=== PATIENT | female | born 1980 | race Caucasian/White ===

== ENCOUNTER 2016-08-22 09:33 | Outpatient (CLI) | payer OTHER | END 2016-08-22 09:34 | disposition home or self-care (01) | DX: Z36 Encounter for antenatal screening of mother (principal) ==

== ENCOUNTER 2016-09-04 11:20 | Outpatient (CLI) | payer OTHER | END 2016-09-04 11:21 | disposition home or self-care (01) | DX: O26.893 Other specified pregnancy related conditions, third trimester (principal); R01.1 Cardiac murmur, unspecified ==

== ENCOUNTER 2016-10-18 11:58 | Outpatient (CLI) | payer OTHER | END 2016-10-18 11:59 | disposition home or self-care (01) | DX: Z36 Encounter for antenatal screening of mother (principal) ==

== ENCOUNTER 2016-11-05 11:38 | Outpatient (CLI) | payer OTHER ==
[2016-11-05 15:43] LABS: BASOPHILS % (AUTO) 0.2 %; EOSINOPHILS # (AUTO) 0.1 10^3/uL (0.0-0.7); EOSINOPHILS % (AUTO) 0.5 %; HCT - HEMATOCRIT 40.5 % (37.0-47.0); HGB - HEMOGLOBIN 13.3 g/dL (12.0-16.0); LYMPHOCYTES # (AUTO) 1.4 10^3/uL (1.5-3.5); LYMPHOCYTES % (AUTO) 9.8 %; MEAN CORPUSCULAR HEMOGLOBIN 28.7 pg (27.0-31.0); MEAN CORPUSCULAR HGB CONC 32.8 g/dL (32.0-36.0); MEAN CORPUSCULAR VOLUME 87.5 fL (81.0-99.0); MEAN PLATELET VOLUME 8.8 fL (7.9-10.8); MONOCYTES # (AUTO) 0.8 10^3/uL (0.0-1.0); MONOCYTES % (AUTO) 5.4 %; NEUTROPHILS % (AUTO) 84.1 %; RED BLOOD COUNT 4.62 10^6/uL (4.20-5.40); RED CELL DISTRIBUTION WIDTH 13.7 % (12.0-15.0); UNCORRECTED WHITE BLOOD COUNT 14.3 x10^3/uL; WHITE BLOOD COUNT 14.3 x10^3/uL (4.8-10.8)
--- NOTE | 2016-11-05 15:52 | HISTORY & PHYSICAL EXAMINATION ---
DATE OF ADMISSION: 11/05/2016 DIAGNOSES: 1. 38 weeks 1 day gestation. 2. Episode of bradycardia heard in office. 3. Decreased movement. 4. Irregular heartbeat 2:1 to 3:1 ratio. HISTORY The patient is a 36-year-old 2, para 1-0-0-1 woman who has had regular care at the [facility] and presented for her usual 38-week check. heart tones were recorded initially at 109 and rechecked at 155 to 160. The patient reported decreased movement, which prompted NST in evaluation in labor and delivery. heart tracing in labor and delivery documented heart tones at a alcon of 109 and up to 155 with marked increase variability and accels. The audible heart tones demonstrated a skipped beat pattern. The patient has no history of diabetes or gestational diabetes. She has not taken any medications other than vitamins recently. She denies drug, tobacco or alcohol use. She has not taken any cfya-xhe-rbssynt medications, and/or caffeine drinks. She reports no leakage of fluid or contractions other than normal [place]. She does not report any anxiety or excitement. Her prior in 2008 resulted in a 41 week difficult of a female weighing 3288 g with nuchal cord and pneumothorax. There is no history of congenital heart disease. The patient has no history of cardiovascular disease or chronic disease. ALLERGIES: NO KNOWN DRUG ALLERGIES. MEDICATIONS: 1. vitamins. 2. Iron. PHYSICAL EXAMINATION: GENERAL: The patient lying comfortably in bed in no distress, alert, oriented and cooperative. VITAL SIGNS: Temperature 98.6, pulse 108, blood pressure 134/92, respiratory rate 20, pulse oximetry 99. HEENT: Nonicteric sclera EOMI. No thyromegaly. CARDIAC: Regular. No murmur, no gallop. LUNGS: Clear. ABDOMEN: No hepatosplenomegaly. No abdominal tenderness. Uterus appropriate size roughly 38 cm. No focal tenderness. No contractions. EXTERNAL heart monitor baseline in general 130s with some wandering and hypervariability, accels present, no notable decelerations. Rare contractions noted. EXTERNAL GENITALIA: No lesions. Dr. Givens. VAGINA: No blood or discharge. CERVIX: Closed long and thick, slightly posterior, Dr. Givens. EXTREMITIES: Nonedematous. ASSESSMENT: The patient has a documented heart irregularity that seems to match a pattern that one would expect for a 1:3 to 2:1 block. The irregularity could account for some of the changes seen on the heart tracing. At the current time, there are no concerns of heart failure. I observed the formal ultrasound and there does not seem to be hydrops. heart seems to be 4 chamber and no structural defects were found though this is only a level 1 study. heart tone irregularity occurs in 1-2% of the patients and often is associated with structural abnormality or abnormal antibody. There are no risk factors for increased incidence of structural abnormality. Currently, antibody causes are being investigated with anti-RO/SSA antibody, anti-LA/SSB antibody; Lupus antibody being drawn. Urine toxicology is also drawn, as well as maternal thyroid panel. Formal echocardiogram will be needed. Further workup will be coordinated with maternal medicine, Dr. Butler, at [facility] maternal medicine. PLAN: Obtain echocardiogram on Friday at [facility] if possible, or if not at [facility] on . Await antibody screen results. There are no concerns about immediate deterioration of condition/ wellbeing. We can safely allow the patient to travel to these appointments by private auto. She has been given instruction to do kick counting on a daily basis and if kick count is diminished she is instructed to call our service immediately. JOB #: [id number] EXT JOB #:[id number] FRANKLYN
--- NOTE | 2016-11-05 16:06 | Ultrasound Report ---
OB LIMITED ULTRASOUND: 11/05/2016 CLINICAL INDICATION: Irregular heart rhythm. TECHNIQUE: Real-time scanning was performed with mortician supplies sales representative static images obtained. LAST MENSTRUAL PERIOD 02/12/2016 Clinical Age 38 weeks 1 day US Age 39 weeks 4 days EFW Hadlock 3857 g EFW% Hadlock 91 % Heart Rate 115 bpm EDC 11/18/2016 US EDC 11/08/2016 BPD Hadlock 38 weeks 3 days; means mm 94.3 HC Hadlock 41 weeks 0 days; means mm 351.9 AC Hadlock 40 weeks 1 days; means mm 362.3 FL Hadlock 38 weeks 3 days; means mm 75.2 Presentation cephalic Placental Location posterior Cervical Length 5.7 cm Amniotic Fluid 18.7 cm FINDINGS: There is a single viable intrauterine gestation, in cephalic presentation. heart rate is 115 BPM. The heart rhythm is noted to be irregular. Visualization of the cardiac structures is limited by positioning, with the spine up throughout the course of the examination. The four-chamber heart appears unremarkable, but outflow tracks could not be visualized. By size, the fetus measures 39.6 weeks (38.1 weeks by LMP). Estimated weight by Hadlock method is 3857 grams, at the 91st percentile for LMP dating. Amniotic fluid volume is normal, with an KURT of 18.7. The placenta is posterior , without evidence of previa. The cervix measures 5.7 cm, and is closed. No adnexal mass or free fluid is appreciated. Please also refer to biophysical profile of the same day. IMPRESSION: SINGLE VIABLE INTRAUTERINE GESTATION, WITH SIZE IN KEEPING WITH LMP DATING. ESTIMATED WEIGHT OF 3857 GRAMS. IRREGULAR HEART RHYTHM. STRUCTURAL EVALUATION OF THE CARDIAC STRUCTURES LIMITED BY POSITIONING AND LATE DATES. NORMAL KURT. MTDD
--- NOTE | 2016-11-05 16:08 | Ultrasound Report ---
BIOPHYSICAL PROFILE: 11/05/2016 CLINICAL INDICATION: bradycardia. TECHNIQUE: Real-time scanning was performed with treasury representative static images obtained. FINDINGS: The fetus receives 2 points for motion, 2 points for tone , and 2 points for amniotic fluid volume. This yields a final score of 6 out of 8. KURT is 18.7. heart rate is 115 BPM. IMPRESSION: A 6 OUT OF 8 BIOPHYSICAL PROFILE. PLEASE ALSO REFER TO LIMITED OB ULTRASOUND OF THE SAME DAY. MTDD
[2016-11-05 16:45] VITALS: BP 135/78
[2016-11-05 17:14] LABS: THYROID STIMULATING HORMONE 2.37 uIU/mL (0.34-5.60)
[2016-11-08 12:08] LABS: TEST RESULT REPORT (())
[2016-11-16 00:23] LABS: B2 GLYCOPROTEIN I IGA AB <9 SAU (< OR = 20); B2 GLYCOPROTEIN I IGG AB <9 SGU (< OR = 20); B2 GLYCOPROTEIN I IGM AB <9 SMU (< OR = 20)
== END 2016-11-05 16:40 | disposition home or self-care (01) ==
LOC: WFO 11:38 → OB 11:39 → WFO 16:40
PROVIDERS: ATTEND Obstetrics & Gynecology
DX: O36.8130 Decreased fetal movements, third trimester, not applicable or unspecified (principal); O76 Abnormality in fetal heart rate and rhythm complicating labor and delivery; Z3A.38 38 weeks gestation of pregnancy
CPT/HCPCS: 36415; 59025; 76816; 76819; 80306; 81599; 84439; 84443; 84482; 85025; 85613; 85730; 86146; 86147; 86235

== ENCOUNTER 2016-11-08 09:54 | Outpatient (CLI) | payer OTHER ==
[2016-11-08 10:07] VITALS: BP 136/88
--- NOTE | 2016-11-10 07:06 | HISTORY & PHYSICAL EXAMINATION ---
DATE OF ADMISSION: 11/08/2016 DIAGNOSES 1. Irregular heart tones/arrhythmia. 2. 38 weeks 4 days gestation. 3. Reactive non-stress test. 4. Advanced maternal age. The patient is a 36-year-old 2, para 1-0-0-1, woman who has been noted to have persistent irregular heart tones. She has been evaluated with echocardiography, which found benign PACs without any tachycardia or structural defect. Current recommendations is for a EKG and Holter monitor. She reports no signs or symptoms of labor or preeclampsia. She has not experienced lightning, vaginal discharge, bloody show or symptoms suggestive of labor. Her last delivery was at or about 42 weeks. The second stage of the labor lasted 40 minutes and provider's note indicates a tight nuchal cord, but does not mention shoulder dystocia. The patient remembers her and nurse holding her legs up, but does not remember hyperflexion specifically. Post-delivery, the suffered a pneumothorax, which she uneventfully recovered. PHYSICAL EXAMINATION VITAL SIGNS: 37.1, pulse 87, respirations 18, blood pressure 136/88. ABDOMEN: Gravid by Russell's fetus is about 7 pounds, vertex presentation. No uterine tenderness. No palpable contractions. EXTERNAL GENITALIA: No apparent lesions. VAGINA: No blood or discharge. CERVIX: Dimple, 20% effaced, -2 station, soft consistency, posterior. NST is category 1 and reactive. ASSESSMENT: The patient has a known arrhythmia without compromise of the fetus. The arrhythmia in itself does not require immediate delivery. There are concerns from her prior history that a difficult delivery versus a tight nuchal cord caused depression, aggressive resuscitation and resultant pneumothorax. Records do not indicate shoulder dystocia and there are no specific recollections by the patient. Current cervical examination is unfavorable. PLAN: We had an open discussion of the relative merits and disadvantages of induction at 39 weeks. The patient is aware that a 39 week delivery will reduce size and diminish chances of trauma. She was also made aware that induction carries a slightly higher rate of delivery compared to spontaneous labor. At the current time, the patient is disinclined to undergo induction at 39 weeks and would prefer to wait for natural cervical ripening, either through coitus, physical activity, or nipple stimulation. If she changes her mind, she will call back for a Friday morning trial of Cervidil. Cervidil was explained to the patient in detail. She will return on Friday for an NST, and on office reevaluation. JOB #: [id number] EXT JOB #:[id number] FRANKLYN
== END 2016-11-08 11:27 | disposition home or self-care (01) ==
LOC: WFO 09:54 → OB 09:55 → WFO 11:27
PROVIDERS: ATTEND Obstetrics & Gynecology
DX: O76 Abnormality in fetal heart rate and rhythm complicating labor and delivery (principal); O09.523 Supervision of elderly multigravida, third trimester; Z3A.38 38 weeks gestation of pregnancy
CPT/HCPCS: 59025

== ENCOUNTER 2016-11-12 08:21 | Outpatient (CLI) | payer OTHER ==
[2016-11-12 09:33] VITALS: BP 133/77
== END 2016-11-12 09:55 | disposition home or self-care (01) ==
LOC: WFO 08:21 → OB 09:21 → WFO 09:55
PROVIDERS: ATTEND Obstetrics & Gynecology
DX: O76 Abnormality in fetal heart rate and rhythm complicating labor and delivery (principal); Z3A.39 39 weeks gestation of pregnancy
CPT/HCPCS: 59025

== ENCOUNTER 2016-11-14 11:30 | Outpatient (CLI) | payer OTHER ==
[2016-11-14 11:42] VITALS: BP 130/73
--- NOTE | 2016-11-17 07:06 | HISTORY & PHYSICAL EXAMINATION ---
DATE OF ADMISSION: 11/14/2016 IDENTIFICATION: This is a 36-year-old G2, P1-0-0-1 with a 40-1/7-week intrauterine , EDC 11/18/2016 with 11 week ultrasound consistent with dates. HISTORY OF PRESENT ILLNESS: This is a patient of [facility] who presented on 11/19/2016 for an elective cervical ripening and induction of labor. The patient's history is significant for a difficult vaginal delivery with her daughter. Although the delivery records do not reflect this, I suspect she had a shoulder dystocia, which caused a pneumothorax in her daughter. The baby needed to be transferred out at that time. She was 41 weeks at the time of delivery. This is a male infant. She is currently doing well, denies any nausea, vomiting, fevers, chills, diarrhea or constipation. She states the baby is moving well and denies any vaginal bleeding or loss of fluid. The patient's most recent examination on revealed that she was closed, 20% effaced, and -2 station, soft and posterior. Her has been remarkable for premature atrial contractions noted at about 38 weeks' gestation. She had a echocardiogram on 11/06/[address] Lacy at [facility]. Dr. Bateman discussed the case with Dr. Sánchez who was comfortable taking care of a fetus with premature atrial contractions. PAST MEDICAL HISTORY: None. PAST SURGICAL HISTORY: None. ALLERGIES: NO KNOWN DRUG ALLERGIES. MEDICATIONS: vitamins. SOCIAL HISTORY: She denies any tobacco, alcohol use, illicit drug use. She is to [place] and this is anticipated male fetus. PAST OBSTETRICAL HISTORY: Her daughter was delivered at [facility] in [place], [place], at 40 weeks 5 days. She did receive an epidural at that time, there was a nuchal cord x1 that was tight. Apgars 7 and 9 at 1 and 5 minutes, respectively. Her daughter's name is Gita who will be 8 years of age in January. PAST GYNECOLOGICAL HISTORY: She has had a history of abnormal Pap smears which wave spontaneously reverted to normal. She denies any sexually transmitted diseases or abnormal Pap smears. FAMILY HISTORY: Noncontributory REVIEW OF SYSTEMS: Negative unless otherwise stated. OBJECTIVE: VITAL SIGNS: Most recent blood pressure is 122/59, weight is 173 pounds. Height is 63 inches. GENERAL: The patient is a well-developed, well-nourished female in no apparent distress. She is alert and oriented x3. HEENT: Within normal limits. CARDIOVASCULAR: Rate is regular, no murmurs or rubs. PULMONARY: Lungs clear to auscultation bilaterally. ABDOMEN: Gravid, nontender. Estimated weight is 9 pounds. laboratories reveal that she is B positive, antibody negative, rubella immune, HIV negative, gonorrhea and chlamydia both negative. Pap smear was normal on 10/27/2014. anatomical survey is consistent with dates within normal limits. Cervix measured 5.7 cm with a posterior placenta. On 09/04/2016 maternal echocardiogram revealed ejection fraction of 60-65% without valvular disease or abnormal wall movement and cell DNA was within normal limits showing GBS is negative with a 1-hour GTT of 110. ASSESSMENT: 1. A 36-year-old G2, P1-0-0-1 with a 40-week, 1-day intrauterine . 2. Cervix remote from delivery. 3. Suspect shoulder dystocia with first . PLAN: 1. We will start Cytotec 50 mcg sublingually x1. 2. Shoulder dystocia precautions at the time of delivery. 3. CBC with a type and hold. 4. We will alert Pediatrics and remind them about the premature atrial contractions that were noted on the echocardiogram. JOB #: [id number] EXT JOB #:[id number] FRANKLYN
== END 2016-11-14 12:20 | disposition home or self-care (01) ==
LOC: WFO 11:30 → OB 11:32 → WFO 12:20
PROVIDERS: ATTEND Obstetrics & Gynecology
DX: O76 Abnormality in fetal heart rate and rhythm complicating labor and delivery (principal); Z3A.39 39 weeks gestation of pregnancy
CPT/HCPCS: 59025

== ENCOUNTER 2016-11-19 07:30 | Inpatient (IN) | payer OTHER ==
[2016-11-19] MEDS ORDERED: SODIUM CHLORIDE FLUSH 0.9% 10 ML SYRINGE IVP ONE (07:42)
--- NOTE | 2016-11-19 08:09 | PROVIDER PROGRESS NOTE ---
Labor Progress Note - Instructions [place]/Slash: -Left hand click circles element as positive or present. -Right hand click slashes element as negative or not present. - Uterine Monitoring Uterine Monitoring Mode: positive: External toco Contraction Frequency (min/apart): Irregular Contraction Intensity: positive: Mild to moderate Uterine Resting Tone: positive: Soft - Monitoring Monitor Mode: positive: External ultrasound Heart Rate Baseline: 110-120's Heart Rate Variability: positive: Moderate (6-25 bmp) Accelerations: positive: Present, 15x15 Decelerations: positive: None Strip Review: positive: Category I - Vaginal Exam Dilation (in cm): 0 Effacement (%): 40 Station: positive: -3 Cervical Position: positive: Posterior - Labor Progress Note Labor Progress Note/Additional Text: 36 yo with a 40wd1 IUP Elective induction of labor PACs Cervix remote from delivery Cytotec 50 mcg SL x 1 Pitocin when cervix ripened
[2016-11-19] MEDS: SODIUM CHLORIDE FLUSH 0.9% 10 ML SYRINGE IVP PRN ×2 (08:12→16:20)
[2016-11-19] MEDS ORDERED: fentaNYL 100 MCG/2 ML VIAL IVP PRN (08:13)
[2016-11-19] MEDS ORDERED: ONDANSETRON 4 MG/2 ML VIAL IVP PRN (08:13)
[2016-11-19] MEDS ORDERED: SODIUM CHLORIDE FLUSH 0.9% 10 ML SYRINGE IVP PRN (08:13)
[2016-11-19] MEDS ORDERED: ACETAMINOPHEN 325 MG TABLET PO PRN (08:13)
[2016-11-19 08:23] LABS: BASOPHILS # (AUTO) 0.1 10^3/uL (0.0-0.1); BASOPHILS % (AUTO) 0.5 %; EOSINOPHILS % (AUTO) 0.4 %; HCT - HEMATOCRIT 36.5 % (37.0-47.0); HGB - HEMOGLOBIN 12.6 g/dL (12.0-16.0); LYMPHOCYTES # (AUTO) 1.3 10^3/uL (1.5-3.5); LYMPHOCYTES % (AUTO) 13.5 %; MEAN CORPUSCULAR HEMOGLOBIN 30.1 pg (27.0-31.0); MEAN CORPUSCULAR HGB CONC 34.7 g/dL (32.0-36.0); MEAN CORPUSCULAR VOLUME 86.9 fL (81.0-99.0); MEAN PLATELET VOLUME 8.2 fL (7.9-10.8); MONOCYTES # (AUTO) 0.7 10^3/uL (0.0-1.0); MONOCYTES % (AUTO) 7.5 %; NEUTROPHILS # (AUTO) 7.7 10^3/uL (1.5-6.6); NEUTROPHILS % (AUTO) 78.1 %; RED CELL DISTRIBUTION WIDTH 13.5 % (12.0-15.0); UNCORRECTED WHITE BLOOD COUNT 9.8 x10^3/uL; WHITE BLOOD COUNT 9.8 x10^3/uL (4.8-10.8)
[2016-11-19] MEDS ORDERED: miSOPROStol 100 MCG TABLET SL ONE (08:30)
[2016-11-19] MEDS ORDERED: LACTATED RINGERS 1,000 ML IV SCH ×2 (09:00→10:02)
[2016-11-19] MEDS ORDERED: TERBUTALINE 1 MG/ML VIAL SUBQ ONE ×3 (10:00→15:54)
[2016-11-19] MEDS ORDERED: LACTATED RINGERS 500 ML IV ONE (10:01)
--- NOTE | 2016-11-19 10:30 | PROVIDER PROGRESS NOTE ---
Labor Progress Note - Instructions [place]/Slash: -Left hand click circles element as positive or present. -Right hand click slashes element as negative or not present. - Uterine Monitoring Uterine Monitoring Mode: positive: External toco Contraction Frequency (min/apart): Irreg (Q2-4) Contraction Intensity: positive: Moderate - Monitoring Monitor Mode: positive: External ultrasound Heart Rate Variability: positive: Moderate (6-25 bmp) Accelerations: positive: Present, 15x15 Decelerations: positive: Late Strip Review: positive: Category II - Labor Progress Note Labor Progress Note/Additional Text: Was called by RN regarding late decels. Patient received cytotec 50 mcg SL x 1. Decels likely from tachysystole. IVF bolus and terbutaline given. Now, decels resolved. Contractions less. Will use cervidil or pitocin for induction.
--- NOTE | 2016-11-19 10:50 | PROVIDER PROGRESS NOTE ---
Labor Progress Note - Instructions [place]/Slash: -Left hand click circles element as positive or present. -Right hand click slashes element as negative or not present. - Uterine Monitoring Uterine Monitoring Mode: positive: External toco Contraction Frequency (min/apart): >Q3 min Contraction Intensity: positive: Mild to moderate Uterine Resting Tone: positive: Soft - Monitoring Monitor Mode: positive: External ultrasound Heart Rate Variability: positive: Moderate (6-25 bmp) Accelerations: positive: Present, 15x15 Decelerations: positive: None Strip Review: positive: Category I - Labor Progress Note Labor Progress Note/Additional Text: Late decels resolved after IVF bolus of LR and terbutaline. Since patient had tachysystole with cytotec, will start pitocin. Pitocin has a very short half life so will be much easier to control vs cytotec. Also change patient status from observation to in-patient. Continue close observation of FHT. Baseline in 120's and reactive and category 1. No decels noted.
[2016-11-19] MEDS ORDERED: OXYTOCIN/LACTATED RINGERS 250 ML IV SCH (11:00)
--- NOTE | 2016-11-19 12:39 | PROVIDER PROGRESS NOTE ---
Labor Progress Note - Instructions [place]/Slash: -Left hand click circles element as positive or present. -Right hand click slashes element as negative or not present. - Uterine Monitoring Uterine Monitoring Mode: positive: External toco Contraction Frequency (min/apart): >Q3 min Contraction Intensity: positive: Moderate Uterine Resting Tone: positive: Soft - Monitoring Monitor Mode: positive: External ultrasound Heart Rate Baseline: 110-120's Heart Rate Variability: positive: Moderate (6-25 bmp) Accelerations: positive: Present, 15x15 Decelerations: positive: None Strip Review: positive: Category I - Vaginal Exam Dilation (in cm): (Deferred) - Labor Progress Note Labor Progress Note/Additional Text: 36 yo with a 40w1d IUP Elective induction Reassuring status Continue pitocin (currently on 2 miliunits/min) Labs, EKG, Meds, Allergy - Lab Results Fish Bones: 11/19/16 08:05 Other Lab Results: Lab Results x24hrs 11/19/16 Range/Units 08:05 WBC 9.8 (4.8-10.8) x10^3/uL RBC 4.20 (4.20-5.40) 10^6/uL Hgb 12.6 (12.0-16.0) g/dL Hct 36.5 L (37.0-47.0) % MCV 86.9 (81.0-99.0) fL MCH 30.1 (27.0-31.0) pg MCHC 34.7 (32.0-36.0) g/dL RDW 13.5 (12.0-15.0) % Plt Count 254 (130-450) 10^3/uL MPV 8.2 (7.9-10.8) fL Neut # 7.7 H (1.5-6.6) 10^3/uL Lymph # 1.3 L (1.5-3.5) 10^3/uL [place] # 0.7 (0.0-1.0) 10^3/uL Eos # 0.0 (0.0-0.7) 10^3/uL Baso # 0.1 (0.0-0.1) 10^3/uL Absolute Nucleated RBC 0.00 x10^3/uL Nucleated RBCs 0.0 /100WBC - Allergy Allergy: Allergies Allergy/AdvReac Type Severity Reaction Status Date / Time No Known Drug Allergies Allergy Verified 11/05/16 13:14
--- NOTE | 2016-11-19 15:57 | PROVIDER PROGRESS NOTE ---
Labor Progress Note - Instructions [place]/Slash: -Left hand click circles element as positive or present. -Right hand click slashes element as negative or not present. - Uterine Monitoring Uterine Monitoring Mode: positive: External toco Contraction Frequency (min/apart): Q2 min Contraction Intensity: positive: Moderate Uterine Resting Tone: positive: Soft - Monitoring Heart Rate Variability: positive: Moderate (6-25 bmp) Accelerations: positive: Present, 15x15 Decelerations: positive: Late Strip Review: positive: Category II (Called by RN for late decelerations. Patient on pitocin 3 milliunit/min. Baby not tolerating tachysystoole. PAC audible. Pitocin ordered to be stopped and terbutaline to be given. Will reevaluate.)
--- NOTE | 2016-11-19 16:38 | PROVIDER PROGRESS NOTE ---
Labor Progress Note - Instructions [place]/Slash: -Left hand click circles element as positive or present. -Right hand click slashes element as negative or not present. - Uterine Monitoring Uterine Monitoring Mode: positive: External toco Contraction Frequency (min/apart): Q2-3 min (pitocin up to 3 milliunits/min) Contraction Intensity: positive: Moderate Uterine Resting Tone: positive: Soft - Monitoring Monitor Mode: positive: External ultrasound Heart Rate Variability: positive: Moderate (6-25 bmp) Accelerations: positive: Present, 15x15 Decelerations: positive: None Strip Review: positive: Category I - Vaginal Exam Dilation (in cm): CL Effacement (%): 50 Station: positive: -2 Cervical Position: positive: Posterior - Labor Progress Note Labor Progress Note/Additional Text: 36 yo with a 40w0d IUP Fetus does not tolerate contractions Q 2 minutes or less. Decels resolved after pitocin stopped. No significant improvement on cervix after 1 dose of cytotec 50 mcg SL and pitocin 4.5 hours. D/W patient we can discharge her to home and return later, cervidil overnight and reevaluate in AM. Patient has decided to get the cervidil overnight. Will proceed.
[2016-11-19] MEDS ORDERED: DINOPROSTONE 10 MG SUPP VG SCH (17:00)
[2016-11-19] MEDS ORDERED: ZOLPIDEM 5 MG TABLET PO PRN (17:03)
[2016-11-20] MEDS: SODIUM CHLORIDE FLUSH 0.9% 10 ML SYRINGE IVP PRN (04:20)
[2016-11-20] MEDS ORDERED: OXYTOCIN/LACTATED RINGERS 250 ML IV ONE ×2 (12:59→18:42)
--- NOTE | 2016-11-20 13:02 | PROVIDER PROGRESS NOTE ---
Labor Progress Note - Instructions [place]/Slash: -Left hand click circles element as positive or present. -Right hand click slashes element as negative or not present. - Vaginal Exam Dilation (in cm): 4 Effacement (%): 50% Station: positive: -3 Cervical Position: positive: Posterior - Labor Progress Note Labor Progress Note/Additional Text: Removed Watts bulb Cx is soft. will start pitocin
[2016-11-20] MEDS ORDERED: OXYTOCIN/LACTATED RINGERS 250 ML IV SCH (14:00)
--- NOTE | 2016-11-20 15:01 | PROVIDER PROGRESS NOTE ---
Labor Progress Note - Instructions [place]/Slash: -Left hand click circles element as positive or present. -Right hand click slashes element as negative or not present. - Uterine Monitoring Uterine Monitoring Mode: positive: External toco Contraction Frequency (min/apart): 10 Contraction Intensity: positive: Mild Uterine Resting Tone: positive: Soft - Monitoring Monitor Mode: positive: External ultrasound Heart Rate Baseline: 120 Heart Rate Variability: positive: Moderate (6-25 bmp) Accelerations: positive: Present, 15x15 Decelerations: positive: Prolonged (>2x10 min) (P:t was stated on pitocin at 1 units was increased to 2 and baby developed deceleration to the 90, Pit sstoped and baby recovered. baby had decelerations with cytotec, and pit cervical ripening. She has yet to develope rerular strong contraction.) Strip Review: positive: Category II
[2016-11-20] MEDS ORDERED: CITRIC ACID/SODIUM CITRATE 15 ML UDC PO ONE (15:19)
[2016-11-20] MEDS ORDERED: LACTATED RINGERS 1,000 ML IV ONE ×2 (15:24→16:34)
[2016-11-20] MEDS ORDERED: MORPHINE PF 5 MG/10 ML AMP SUBQ ONE (15:45)
[2016-11-20] MEDS ORDERED: fentaNYL 100 MCG/2 ML VIAL IVP ONE (15:45)
[2016-11-20] MEDS ORDERED: OXYTOCIN 10 UNIT/ML VIAL IV ONE (15:45)
--- NOTE | 2016-11-20 16:43 | OPERATIVE REPORT ---
Operative Report - General Admit Date: 11/19/16 Procedure Date: 11/20/16 Planned Procedure: Primary LTCS Pre-Op Diagnosis: 1. 40.2 weeks 2. intolerance of labor 3. cardiac arythmia Post Op Diagnosis: Same - Procedure Note Primary Surgeon: Ryan Givens MD Secondary Surgeon: Schuyler Núñez Anesthesia Provider: Jimmy Grigsby Anesthesia Technique: Spinal Pathology: Placenta Estimated Blood Loss (in cc): 900
[2016-11-20] MEDS ORDERED: diphenhydrAMINE 25 MG CAPSULE PO PRN (16:46)
[2016-11-20] MEDS ORDERED: diphenhydrAMINE INJ 50 MG/ML VIAL IVP PRN (16:46)
[2016-11-20] MEDS ORDERED: LACTATED RINGERS 1,000 ML IV SCH (17:00)
[2016-11-20] MEDS: KETOROLAC 30 MG/ML VIAL IV SCH (18:16)
[2016-11-20] MEDS: ACETAMINOPHEN 500 MG TABLET PO SCH (18:47)
[2016-11-20] MEDS: SIMETHICONE CHEW 80 MG TABLET PO SCH (21:57)
[2016-11-21] MEDS: SODIUM CHLORIDE FLUSH 0.9% 10 ML SYRINGE IVP PRN ×4 (00:17→17:42)
[2016-11-21] MEDS: KETOROLAC 30 MG/ML VIAL IV SCH ×3 (00:17→11:41)
[2016-11-21] MEDS: ACETAMINOPHEN 500 MG TABLET PO SCH ×3 (03:41→20:07)
[2016-11-21 06:03] LABS: BASOPHILS # (AUTO) 0.1 10^3/uL (0.0-0.1); BASOPHILS % (AUTO) 0.5 %; EOSINOPHILS # (AUTO) 0.1 10^3/uL (0.0-0.7); EOSINOPHILS % (AUTO) 0.6 %; HCT - HEMATOCRIT 34.8 % (37.0-47.0); HGB - HEMOGLOBIN 11.4 g/dL (12.0-16.0); LYMPHOCYTES # (AUTO) 1.4 10^3/uL (1.5-3.5); LYMPHOCYTES % (AUTO) 11.2 %; MEAN CORPUSCULAR HEMOGLOBIN 29.3 pg (27.0-31.0); MEAN CORPUSCULAR HGB CONC 32.8 g/dL (32.0-36.0); MEAN CORPUSCULAR VOLUME 89.3 fL (81.0-99.0); MEAN PLATELET VOLUME 8.7 fL (7.9-10.8); MONOCYTES # (AUTO) 0.8 10^3/uL (0.0-1.0); MONOCYTES % (AUTO) 6.6 %; NEUTROPHILS # (AUTO) 10.4 10^3/uL (1.5-6.6); NEUTROPHILS % (AUTO) 81.1 %; UNCORRECTED WHITE BLOOD COUNT 12.8 x10^3/uL; WHITE BLOOD COUNT 12.8 x10^3/uL (4.8-10.8)
--- NOTE | 2016-11-21 06:31 | OPERATIVE REPORT ---
DATE OF SURGERY: 11/20/2016 00:00:00 PREOPERATIVE DIAGNOSES 1. 40.2 weeks. 2. intolerance of labor. 3. Infant with cardiac arrhythmia. POSTOPERATIVE DIAGNOSES 1. 40.2 weeks. 2. intolerance of labor. 3. Infant with cardiac arrhythmia. PROCEDURE: Primary low transverse section. SURGEON: Ryan Givens MD. CHEESE BLENDER: Dr. Niya MD. ANESTHESIA: Spinal. ESTIMATED BLOOD LOSS: 900 mL. FINDINGS: Live male , vertex presentation, clear amniotic fluid, Apgars 8 and 9. No evidence of any nuchal or prolapsed cords. Normal pelvis. PROCEDURE: Following adequate spinal anesthesia, the patient was placed in the supine position with a roll under the right hip. At this point, she was prepped and draped in the usual fashion. Following a time-out, the patient was identified. Allergies, as well as concerns identified and at procedure was commenced. A Pfannenstiel incision was carried down through subcutaneous tissue to the fascia. The fascia was incised transversely, then using both blunt and sharp dissection, it was freed from the rectus abdominis and pyramidalis. The rectus was split along the midline. Peritoneum was entered high. Care was taken to avoid injury to the bowel or bladder. A bladder flap was developed using Metzenbaum scissors and pickups. A low transverse uterine incision was accomplished using a #10 blade, bandage scissor, and finger spread technique. The head of the infant was lifted out of pelvis, delivered through the incision. The oropharynx were bulb suctioned. The remainder of the infant was delivered without difficulty. The cord was doubly clamped, divided, and the infant was handed to the nursery team that was standing by. Cord blood samples were obtained, but because of good Apgars of being 8 and 9, it was decided that no cord gases were indicated. The placenta was manually delivered, the uterus exteriorized, wrapped in a moist lap, and cleansed in the internal portion with a dry lap. The placenta was sent for pathology. The incision was closed using 0 Vicryl running locking suture with an imbricating layer of #0 Vicryl. Good hemostasis was observed. At this point, the incision was closed with a running locking suture of #0 Vicryl with an imbricating layer of #0 Vicryl. Estimated blood loss was ascertained at that time and the pelvis was irrigated. The uterus was delivered back in the abdominal cavity. The gutters were irrigated and suctioned. The incision was inspected. No bleeding was noted, so the peritoneum was closed using 2-0 Vicryl in a running suture. The rectus was reapproximated with 2-0 Vicryl and then the fascia was closed using 0 Vicryl starting at the apexes of the incision and crossing at the midline. Subcutaneous tissue was closed utilizing 2-0 Vicryl and the incision itself was closed using 4-0 Monocryl subcuticular stitch. Mastisol, as well as Steri- Strips were applied. The patient tolerated the procedure well and was taken to recovery in stable condition. Sponge and needle counts were correct. JOB #: [id number] EXT JOB #:[id number] MTDD
--- NOTE | 2016-11-21 07:58 | PROVIDER PROGRESS NOTE ---
Subjective - General Admit Date: 11/19/16 Procedure Date: 11/20/16 Post Op Days: 1 Procedure Performed: PLTC/S - Review of Systems Wound/Incisions: positive: Dressing dry and intact General: positive: No symptoms (Passing flatus. Pain is 1/10 when not moving.) Gastrointestinal: positive: Flatus Objective - Patient Data Vital Signs: Vital Signs x48h Temp Pulse Resp BP Pulse Ox 11/21/16 04:10 37.0 C 65 16 113/67 97 11/21/16 03:00 16 11/21/16 02:15 16 11/21/16 01:00 18 11/21/16 00:10 37.0 C 66 18 113/76 98 Weight: Weight 11/19/16 11/20/16 11/21/16 23:59 23:59 23:59 Weight (kg) 78.018 kg Intake & Output: Intake and Output Totals x24h 11/19/16 11/20/16 11/21/16 23:59 23:59 23:59 Intake Total 1000 2318 Output Total 975 450 350 Balance 25 -450 1967 - Lab Results Lab Results: 11/21/16 05:47 Other Lab Results: Lab Results x24hrs 11/21/16 Range/Units 05:47 WBC 12.8 H (4.8-10.8) x10^3/uL RBC 3.90 L (4.20-5.40) 10^6/uL Hgb 11.4 L (12.0-16.0) g/dL Hct 34.8 L (37.0-47.0) % MCV 89.3 (81.0-99.0) fL MCH 29.3 (27.0-31.0) pg MCHC 32.8 (32.0-36.0) g/dL RDW 14.0 (12.0-15.0) % Plt Count 226 (130-450) 10^3/uL MPV 8.7 (7.9-10.8) fL Neut # 10.4 H (1.5-6.6) 10^3/uL Lymph # 1.4 L (1.5-3.5) 10^3/uL Cassia # 0.8 (0.0-1.0) 10^3/uL Eos # 0.1 (0.0-0.7) 10^3/uL Baso # 0.1 (0.0-0.1) 10^3/uL Absolute Nucleated RBC 0.00 x10^3/uL Nucleated RBCs 0.0 /100WBC - Current Medications Current Medications: Current Medications Generic Name Dose Route Start Last Admin Trade Name Freq PRN Reason Stop Dose Admin Acetaminophen 1,000 mg 11/20/16 17:00 11/21/16 03:41 Tylenol PO 1,000 mg Q8H TAWANNA Administration Lactated Ringer's 1,000 mls @ 100 mls/hr 11/20/16 17:00 11/21/16 03:43 Lr IV 100 mls/hr .Q10H TAWANNA Administration Ketorolac Tromethamine 30 mg 11/20/16 17:00 11/21/16 05:56 Toradol Inj IV 11/21/16 11:01 30 mg Q6H TAWANNA Administration Simethicone 80 mg 11/20/16 22:00 11/20/16 21:57 Mylicon PO 80 mg TID TAWANNA Administration Sodium Chloride 10 ml 11/19/16 07:49 11/21/16 05:56 Normal Saline Flush 0.9% IVP 10 ml PRN PRN Administration PER PHYSICIAN ORDER
--- NOTE | 2016-11-21 08:04 | PROVIDER PROGRESS NOTE ---
Subjective - General Admit Date: 11/19/16 Procedure Date: 11/20/16 Post Op Days: 1 Procedure Performed: PLTC/S - Review of Systems Wound/Incisions: positive: Dressing dry and intact General: positive: No symptoms (Passing flatus. Pain is 1/10 when not moving.) Gastrointestinal: positive: Flatus Objective - Patient Data Reviewed Vital Signs: Yes Vital Signs: Vital Signs x48h Temp Pulse Resp BP Pulse Ox 11/21/16 04:10 37.0 C 65 16 113/67 97 11/21/16 03:00 16 11/21/16 02:15 16 11/21/16 01:00 18 11/21/16 00:10 37.0 C 66 18 113/76 98 Weight: Weight 11/19/16 11/20/16 11/21/16 23:59 23:59 23:59 Weight (kg) 78.018 kg Intake & Output: Intake and Output Totals x24h 11/19/16 11/20/16 11/21/16 23:59 23:59 23:59 Intake Total 1000 2318 Output Total 975 450 350 Balance 25 -450 1968 - Lab Results Lab Results: 11/21/16 05:47 Other Lab Results: Lab Results x24hrs 11/21/16 Range/Units 05:47 WBC 12.8 H (4.8-10.8) x10^3/uL RBC 3.90 L (4.20-5.40) 10^6/uL Hgb 11.4 L (12.0-16.0) g/dL Hct 34.8 L (37.0-47.0) % MCV 89.3 (81.0-99.0) fL MCH 29.3 (27.0-31.0) pg MCHC 32.8 (32.0-36.0) g/dL RDW 14.0 (12.0-15.0) % Plt Count 226 (130-450) 10^3/uL MPV 8.7 (7.9-10.8) fL Neut # 10.4 H (1.5-6.6) 10^3/uL Lymph # 1.4 L (1.5-3.5) 10^3/uL Carlton # 0.8 (0.0-1.0) 10^3/uL Eos # 0.1 (0.0-0.7) 10^3/uL Baso # 0.1 (0.0-0.1) 10^3/uL Absolute Nucleated RBC 0.00 x10^3/uL Nucleated RBCs 0.0 /100WBC - Current Medications Current Medications: Current Medications Generic Name Dose Route Start Last Admin Trade Name Freq PRN Reason Stop Dose Admin Acetaminophen 1,000 mg 11/20/16 17:00 11/21/16 03:41 Tylenol PO 1,000 mg Q8H TAWANNA Administration Lactated Ringer's 1,000 mls @ 100 mls/hr 11/20/16 17:00 11/21/16 03:43 Lr IV 100 mls/hr .Q10H TAWANNA Administration Ketorolac Tromethamine 30 mg 11/20/16 17:00 11/21/16 05:56 Toradol Inj IV 11/21/16 11:01 30 mg Q6H TAWANNA Administration Simethicone 80 mg 11/20/16 22:00 11/20/16 21:57 Mylicon PO 80 mg TID TAWANNA Administration Sodium Chloride 10 ml 11/19/16 07:49 11/21/16 05:56 Normal Saline Flush 0.9% IVP 10 ml PRN PRN Administration PER PHYSICIAN ORDER - Physical Exam Wound/Incisions: positive: Dressing dry and intact General Appearance: positive: No acute distress, Alert Respiratory: positive: Chest non-tender, No respiratory distress, Breath sounds nml Cardiovascular: positive: Regular rate & rhythm, No murmur Abdomen: positive: Tenderness (at umbilicus), Mass (U-1) Back: negative: CVA tenderness (R), CVA tenderness (L) Extremities: negative: Calf tenderness, Franck's sign/cords Impression/Plan - Problem List Problem List: POD #1 S/P PLTC/S Pr gressing well Start orals remove Watts
[2016-11-21] MEDS: SIMETHICONE CHEW 80 MG TABLET PO SCH ×3 (09:28→21:30)
[2016-11-21] MEDS ORDERED: CELECOXIB 100 MG CAPSULE PO SCH (14:00)
[2016-11-21] MEDS: DOCUSATE SODIUM 100 MG CAPSULE PO SCH ×2 (14:03→21:31)
[2016-11-21] MEDS: CELECOXIB 100 MG CAPSULE PO SCH (17:54)
[2016-11-21] MEDS: oxyCODONE 5 MG TABLET PO PRN (21:30)
[2016-11-22] MEDS: oxyCODONE 5 MG TABLET PO PRN ×3 (02:29→15:14)
[2016-11-22] MEDS: ACETAMINOPHEN 500 MG TABLET PO SCH ×2 (04:30→12:43)
[2016-11-22] MEDS: CELECOXIB 100 MG CAPSULE PO SCH (05:58)
[2016-11-22] MEDS: SIMETHICONE CHEW 80 MG TABLET PO SCH ×2 (06:01→15:15)
[2016-11-22 08:33] VITALS: BP 99/77
--- NOTE | 2016-11-22 09:44 | PROVIDER PROGRESS NOTE ---
Subjective - General Admit Date: 11/19/16 Procedure Date: 11/20/16 Post Op Days: 2 Procedure Performed: PLTC/S - Review of Systems Wound/Incisions: positive: Healing well, Dressing dry and intact. negative: Drainage, Erythema General: positive: No symptoms (Passing flatus. Pain is 2/10 when not moving. Regular diet) Gastrointestinal: positive: Flatus Objective - Patient Data Reviewed Vital Signs: Yes Vital Signs: Vital Signs x48h Temp Pulse Resp BP Pulse Ox 11/22/16 08:27 36.5 C 71 16 99/77 98 Intake & Output: Intake and Output Totals x24h 11/20/16 11/21/16 11/22/16 23:59 23:59 23:59 Intake Total 2394 Output Total 450 2100 Balance -450 294 - Lab Results Lab Results: 11/21/16 05:47 - Current Medications Current Medications: Current Medications Generic Name Dose Route Start Last Admin Trade Name Freq PRN Reason Stop Dose Admin Acetaminophen 1,000 mg 11/20/16 17:00 11/22/16 04:30 Tylenol PO 1,000 mg Q8H TAWANNA Administration Celecoxib 200 mg 11/21/16 18:00 11/22/16 05:58 Celebrex PO 200 mg BID TAWANNA Administration Docusate Sodium 100 mg 11/21/16 14:00 11/21/16 21:31 Colace 100mg Capsule PO 100 mg BID TAWANNA Administration Lactated Ringer's 1,000 mls @ 100 mls/hr 11/20/16 17:00 11/21/16 03:43 Lr IV 100 mls/hr .Q10H TAWANNA Administration Oxycodone HCl 5 mg 11/20/16 16:46 11/22/16 08:34 Roxicodone PO 5 mg Q4HR PRN Administration PAIN Simethicone 80 mg 11/20/16 22:00 11/22/16 06:01 Mylicon PO 80 mg TID TAWANNA Administration Sodium Chloride 10 ml 11/19/16 07:49 11/21/16 17:42 Normal Saline Flush 0.9% IVP 10 ml PRN PRN Administration PER PHYSICIAN ORDER - Physical Exam Wound/Incisions: positive: Healing well, No drainage. negative: Erythema General Appearance: positive: No acute distress, Alert Respiratory: positive: Chest non-tender, No respiratory distress, Breath sounds nml. negative: Wheezes Cardiovascular: positive: Regular rate & rhythm, Systolic murmur (2/6) Abdomen: positive: Non-tender, Nml bowel sounds, No distention, Mass (U-2). negative: Guarding Back: negative: CVA tenderness (R), CVA tenderness (L) Skin: positive: Color nml, No rash Extremities: positive: No pedal edema. negative: Joint swelling, Franck's sign/ cords Neurologic/Psychiatric: positive: Oriented x3 Impression/Plan - Problem List Problem List: Pt is doing well. Heart mummer was documented and Had normal Echo Anticipate discharge today Discharge meds: Percocet Motrin 800 Colace RtTC 1-2 and 6 weeks Reviewed Breast feeding and mastitis
--- NOTE | 2016-11-22 09:59 | Discharge Plan ---
Discharge Plan Disposition: 01 Home, Self Care Condition: Good Diet: Regular Activity Restrictions: No Restrictions Shower Restrictions: No Driving Restrictions: No Weight Bearing: Full Weight No Smoking: If you smoke, Please STOP! Call for help. Follow-up with: Ryan Givens MD [Provider Admit Priv/Credential] -
[2016-11-22] MEDS: DOCUSATE SODIUM 100 MG CAPSULE PO SCH (15:14)
--- NOTE | 2016-11-22 16:16 | Labor Flowsheet ---
Labor Flowsheet Datetime Report Generated by CPN: 11/22/2016 16:15 Datetime: 11/21/2016 07:55 VITAL SIGNS NBP Sys/Anais/Mean (mmHg): 114 : 73 : 78 Pulse: 69 LaborFlag: Labor Datetime: 11/21/2016 07:54 SpO2 (%): 96 Datetime: 11/20/2016 15:35 ASSESSMENT A Monitor Mode: Doppler FHR Baseline Rate : 135 Comments: Doppler FHR check in OR1 prior to C/S Datetime: 11/20/2016 15:00 UTERINE ACTIVITY Monitor Mode: External Frequency (min): 1.5-8 Quality: Moderate Duration (sec): 60-150 Pattern: Normal: <= 5 Contractions in 10 Minutes Resting Tone (Palpate): Relaxed FHR Baseline Changes: No Baseline Change Variability: Moderate 6-25 bpm Accelerations: 15X15 Decelerations: None Category: Category I Datetime: 11/20/2016 14:45 COMMUNICATION Communication: Provider at Bedside (Annotations: Dr. Givens made decision with patient and her husban d to proceed with section. Patient consented and agreeable to plan. Pitocin turned off. FHR tracing currently reassuring. assist, layaway clerk, housekeeping aide, OR staff, and anesthes ia notified. ) Datetime: 11/20/2016 14:40 MEDICATIONS Pitocin (milliunits): Discontinued Datetime: 11/20/2016 14:30 Actions for Decelerations: Side to Side; Oxygen Applied; Pitocin Off; Provider Notified Provider Notified (Name): Dr. Givens Notification Reason: Labor Status Nurse Giving Report: Liliana Rocha RN SBAR Notable Communications: deceleration on 2 of pitocin Datetime: 11/20/2016 14:17 PATIENT CARE Oxygen Amount (LPM): 15 Patient Position/Activity: Right Lateral Datetime: 11/20/2016 13:45 Pitocin Checklist: At Least 1 Acceleration of 15 bpm x 15 Seconds in 30 Minutes or Adequate Variabi lity Datetime: 11/20/2016 11:50 VAGINAL EXAM Dilatation (cm): 4.0 Effacement (%): 40 Station: -3 Exam by: Dr. Givens Membrane Status: Intact Vaginal Exam Comments: Watts balloon removed by Dr. Givens Datetime: 11/20/2016 11:08 Stage of : Labor Temperature (C): 37.0 PAIN Pain Scale: 2 Pain Presence: Intermittent Pain Type: Cramping Pain Location: Abdomen Pain Relief Measures: Comfort Measures Datetime: 11/20/2016 10:03 Pain Coping: Talking Through Contractions Datetime: 11/20/2016 08:45 MATERNAL ASSESSMENT Level of Consciousness: Fully Conscious Headache: Denies Nausea/Vomiting: Denies Datetime: 11/20/2016 08:20 Vaginal Bleeding: Scant Cervix, Consistency: Soft Datetime: 11/20/2016 07:26 Temperature Route: Oral Datetime: 11/20/2016 06:27 Hygiene: Shower Datetime: 11/20/2016 06:19 Contraction Comments: Irregular heartbeat heard on monitor Oxygen Method: Room Air Datetime: 11/20/2016 05:58 Monitor Interventions for UA: [place] Adjusted Datetime: 11/20/2016 05:56 Cervix, Position: Posterior Datetime: 11/20/2016 05:51 Procedures: Sterile Vag Exam Patient Care Comments: cervidil d/c'd Datetime: 11/20/2016 05:49 Respirations: 17 Datetime: 11/20/2016 05:44 I/O Interventions: Up to BR Datetime: 11/20/2016 04:30 Monitor Interventions for FHR: Ultrasound Adjusted Datetime: 11/19/2016 19:20 Communication Comments: Kayleigh B, RN, and Stefanie, S-R., RN, assumed care of patient Datetime: 11/19/2016 17:49 Cervical Ripening Agents: Cervidil Datetime: 11/19/2016 13:01 ASSESSMENT B Monitor Mode: External US FHR Baseline Rate : 120 Variability: Moderate 6-25 bpm Accelerations: 15X15 Decelerations: None Category: Category I Datetime: 11/19/2016 10:04 Tocolytics: Terbutaline 0.25mg Subcutaneous Datetime: 11/19/2016 10:00 TEACHING Instructional Method: Verbal; Verbalized Understanding (Annotations: Discussed situation with FHR and late decels. Pt and spouse concerned over baby well being. Instructed pt and family about mod variabilty = well being. Unknown what is causing lat e decels. Discussed need for terb and side effects. Plan to wait and see how baby does as ctx slow do wn. Pt verbalizes understanding.)
--- NOTE | 2016-11-25 13:07 | HISTORY & PHYSICAL EXAMINATION ---
DATE OF ADMISSION: 11/22/2016 IDENTIFICATION: This is a 36-year-old G2, P1-0-0-1 with a 40-1/7-week intrauterine , EDC 11/18/2016 with 11 week ultrasound consistent with dates. HISTORY OF PRESENT ILLNESS: This is a patient of [facility] who presented on 11/19/2016 for an elective cervical ripening and induction of labor. The patient's history is significant for a difficult vaginal delivery with her daughter. Although the delivery records do not reflect this, I suspect she had a shoulder dystocia, which caused a pneumothorax in her daughter. The baby needed to be transferred out at that time. She was 41 weeks at the time of delivery. This is a male infant. She is currently doing well, denies any nausea, vomiting, fevers, chills, diarrhea or constipation. She states the baby is moving well and denies any vaginal bleeding or loss of fluid. The patient's most recent examination on revealed that she was closed, 20% effaced, and -2 station, soft and posterior. Her has been remarkable for premature atrial contractions noted at about 38 weeks' gestation. She had a echocardiogram on 11/06/[address] Lacy at [facility]. Dr. Bateman discussed the case with Dr. Sánchez who was comfortable taking care of a fetus with premature atrial contractions. PAST MEDICAL HISTORY: None. PAST SURGICAL HISTORY: None. ALLERGIES: NO KNOWN DRUG ALLERGIES. MEDICATIONS: vitamins. SOCIAL HISTORY: She denies any tobacco, alcohol use, illicit drug use. She is to [place] and this is anticipated male fetus. PAST OBSTETRICAL HISTORY: Her daughter was delivered at [facility] in [place], [place], at 40 weeks 5 days. She did receive an epidural at that time, there was a nuchal cord x1 that was tight. Apgars 7 and 9 at 1 and 5 minutes, respectively. Her daughter's name is Gita who will be 8 years of age in January. PAST GYNECOLOGICAL HISTORY: She has had a history of abnormal Pap smears which wave spontaneously reverted to normal. She denies any sexually transmitted diseases or abnormal Pap smears. FAMILY HISTORY: Noncontributory REVIEW OF SYSTEMS: Negative unless otherwise stated. OBJECTIVE: VITAL SIGNS: Most recent blood pressure is 122/59, weight is 173 pounds. Height is 63 inches. GENERAL: The patient is a well-developed, well-nourished female in no apparent distress. She is alert and oriented x3. HEENT: Within normal limits. CARDIOVASCULAR: Rate is regular, no murmurs or rubs. PULMONARY: Lungs clear to auscultation bilaterally. ABDOMEN: Gravid, nontender. Estimated weight is 9 pounds. laboratories reveal that she is B positive, antibody negative, rubella immune, HIV negative, gonorrhea and chlamydia both negative. Pap smear was normal on 10/27/2014. anatomical survey is consistent with dates within normal limits. Cervix measured 5.7 cm with a posterior placenta. On 09/04/2016 maternal echocardiogram revealed ejection fraction of 60-65% without valvular disease or abnormal wall movement and cell DNA was within normal limits showing GBS is negative with a 1-hour GTT of 110. ASSESSMENT: 1. A 36-year-old G2, P1-0-0-1 with a 40-week, 1-day intrauterine . 2. Cervix remote from delivery. 3. Suspect shoulder dystocia with first . PLAN: 1. We will start Cytotec 50 mcg sublingually x1. 2. Shoulder dystocia precautions at the time of delivery. 3. CBC with a type and hold. 4. We will alert Pediatrics and remind them about the premature atrial contractions that were noted on the echocardiogram. JOB #: [id number] EXT JOB #:[id number] FRANKLYN
--- NOTE | 2016-12-04 11:17 | DISCHARGE SUMMARY ---
DATE OF ADMISSION: 11/19/2016 DATE OF DISCHARGE: 11/22/2016 ADMITTING DIAGNOSES: 1. A 40-week gestation. 2. cardiac arrhythmia. DISCHARGE DIAGNOSES: 1. A 40-week gestation. 2. cardiac arrhythmia. 3. intolerance of labor. PROCEDURES 1. Cervical ripening with Cytotec followed by Pitocin followed by Cervidil followed by a Watts bulb. 2. Induction of labor with Pitocin. 3. Primary low transverse section. PRESENTING HISTORY: The patient is a 36-year-old G2, P1 female who is 40 weeks' gestation. She receiv ed her care initially at [facility] but transferred at 27 weeks to [facility]. Her course was complicated with maternal heart murmur, which was 2/6. Following this, she had a normal echo at 38 weeks. She was noted to have heart rate running 109 in the o ffice with evidence of irregular. She was sent over to Labor and Delivery at which time she had irreg ular heartbeat. echo showed anywhere from 2:1 to 3:[address] Butler of maternal m edicine was consulted and the infant received a cardiac echo, which was noted to be normal. The patie nt reached 40 weeks and presented to Labor and Delivery for induction. LABORATORY: On admission, her white count was 9.8, hemoglobin 12.6, hematocrit was 36.5, and platelet s were 254. Following , her white count was 12.8, hemoglobin fell to 11.4, hematocrit was 34 .8, and platelets were 226. HOSPITAL COURSE: The patient was admitted and initially was given Cytotec for cervical ripening. Her cervix initially was 0, 40% and -2 vertex. She developed late decelerations because of tach asystole and received terbutaline. She was initiated on Pitocin and once again developed late decelerations. S he was then tried on Cervidil with little or no progress. A Watts bulb was placed and she achieved ce rvical dilatation to 4 cm, 50%, -3 with a soft cervix. Pitocin was again initiated and she developed decelerations after 2 units of Pitocin. For this reason, following discussion with the parents, it wa s decided to proceed on to section. was performed without incident. A live male in shama, Apgars 8 and 9, weighing 8 pounds 7 ounces was delivered. The did well. Mother postopera tively did quite well. Her diet was advanced, she was changed to oral pain medications, and she was d ischarged on 11/26/2016. Her discharge medications were those of Percocet, Motrin and Colace. She was instructed to follow up in the clinic in roughly 1-2 weeks. Discussed contraception as well as breas tfeeding and mastitis with the patient. JOB #: [id number] EXT JOB #:[id number]
== END 2016-11-22 16:10 | disposition home or self-care (01) | DRG 766 ==
LOC: OB 07:33 → OBSVTOIN 10:46
PROVIDERS: ADMIT Obstetrics & Gynecology; ATTEND Obstetrics & Gynecology
PROC: 3E033VJ Introduction of Other Hormone into Peripheral Vein, Percutaneous Approach (ICD-10-PCS; 2016-11-19)
PROC: 3E0P7GC Introduction of Other Therapeutic Substance into Female Reproductive, Via Natural or Artificial Opening (ICD-10-PCS; 2016-11-19)
PROC: 0U7C7ZZ Dilation of Cervix, Via Natural or Artificial Opening (ICD-10-PCS; 2016-11-20)
PROC: 10D00Z1 Extraction of Products of Conception, Low, Open Approach (ICD-10-PCS; principal; 2016-11-20 15:30)
DX: O76 Abnormality in fetal heart rate and rhythm complicating labor and delivery (principal); Z37.0 Single live birth; Z3A.40 40 weeks gestation of pregnancy; Z86.79 Personal history of other diseases of the circulatory system
CPT/HCPCS: 36415; 85025; 88307; 96372